=== PATIENT | female | born 1945 | race Hispanic/Latino ===

== ENCOUNTER 2025-03-12 07:20 | Outpatient (CLI) | payer OTHER, MEDICAID ==
[2025-03-12 08:07] LABS: Estimated GFR - POC 96.0
[2025-03-12] MEDS ORDERED: Iopamidol 370 76% 100 ML VIAL ONE (10:12)
== END 2025-03-12 07:21 | disposition home or self-care (01) ==
LOC: CT 07:20
PROVIDERS: ATTEND Physician Assistant Medical
DX: R10.9 Unspecified abdominal pain (principal)
CPT/HCPCS: 36415; 74177; 82565; Q9967

== ENCOUNTER 2025-03-19 16:18 | Outpatient (CLI) | payer OTHER, MEDICAID | END 2025-03-19 16:19 | disposition home or self-care (01) | LOC: CT 16:18 | PROVIDERS: ATTEND Internal Medicine | DX: J47.9 Bronchiectasis, uncomplicated (principal) | CPT/HCPCS: 71250 ==